=== PATIENT | male | born 1990 | race Hispanic/Latino ===

== ENCOUNTER 2019-11-27 12:21 | Emergency (ER) | payer SELFPAY ==
--- NOTE | 2019-11-27 13:48 | RAD ---
FRONTAL RADIOGRAPH CHEST: Date: 11-27-2019 Comparison: None History: Shortness of breath, palpitations. FINDINGS: Lungs are clear. Heart and mediastinal contours are unremarkable. IMPRESSION: No acute findings. POS: [facility]
== END 2019-11-27 16:06 | disposition home or self-care (01) ==
LOC: ERS 12:21
DX: R06.00 Dyspnea, unspecified (principal); R00.2 Palpitations; F41.9 Anxiety disorder, unspecified; Z79.899 Other long term (current) drug therapy
CPT/HCPCS: 71045; 93005